=== PATIENT | male | born 1990 | race Caucasian/White ===

== ENCOUNTER 2021-02-04 15:21 | Emergency (ER) | payer OTHER ==
[~2021-02-04] VITALS: Ht 172.7 cm; Wt 79.5 kg
[2021-02-04 15:25] VITALS: BP 109/82
--- NOTE | 2021-02-04 15:33 | NUR ---
PT AMBULTED TO ROOM FROM TRIAGE. PT STATED THAT HE STUBBED HIS 4TH AND 5TH TOES ON HIS LEFT FOOT YESTERDAY AND IT IS VERY PAINFUL TO BEAR WEIGHT ON HIS LEFT FOOT. TOES BRUISED AND SWOLLEN.
--- NOTE | 2021-02-04 16:33 | NUR ---
ER AT BEDSIDE
[2021-02-04] MEDS ORDERED: HYDROcodone/APAP 5/325 TABLET ONE (16:35)
[2021-02-04] MEDS ORDERED: HYDROcodone/APAP 5/325 TABLET PO ONE (17:00)
--- NOTE | 2021-02-04 18:18 | NUR ---
DISCHARGE INSTRUCTIONS REVIEWED WITH PT. ALL QUESTIONS ANSWERED AT THIS TIME
== END 2021-02-04 18:20 | disposition home or self-care (01) ==
LOC: ED 18:01
DX: S92.515A Nondisplaced fracture of proximal phalanx of left lesser toe(s), initial encounter for closed fracture (principal); X58.XXXA Exposure to other specified factors, initial encounter; Y93.89 Activity, other specified; Y92.009 Unspecified place in unspecified non-institutional (private) residence as the place of occurrence of the external cause; Y99.8 Other external cause status
CPT/HCPCS: 99283